=== PATIENT | female | born 1990 | race Hispanic/Latino ===

== ENCOUNTER 2016-07-25 23:43 | Inpatient (IN) | payer MEDICAID ==
[~2016-07-25] VITALS: Ht 152.4 cm; Wt 68.9 kg
[2016-07-26] MEDS ORDERED: Bupivacaine-MPF 0.25% 30 mL Inj ONE (00:16)
[2016-07-26] MEDS ORDERED: Lactated Ringer's 1,000 ML IV PRN (00:21)
[2016-07-26] MEDS ORDERED: fentaNYL-PF 50 mCg/mL 2 mL Inj IVPUSH PRN (00:25)
[2016-07-26] MEDS ORDERED: Oxytocin 10 Unit/mL Inj IM PRN ×2 (00:25→05:00)
[2016-07-26] MEDS ORDERED: Methylergonovine 0.2 mg/mL Inj IM PRN ×2 (00:25→05:00)
[2016-07-26] MEDS ORDERED: Oxytocin 30 Units/500 mL LR 30 UNITS in IV Premix 1 EACH IV PRN ×2 (00:25→05:00)
[2016-07-26] MEDS ORDERED: Sodium Chloride LOK Flush 10 mL Syringe IVFLUSH PRN (00:25)
[2016-07-26] MEDS ORDERED: Hemorrhage Kit, Post Partum XX ONE ×2 (00:25→05:00)
[2016-07-26] MEDS ORDERED: Carboprost 250 mCg/mL Inj IM PRN ×2 (00:25→05:00)
[2016-07-26] MEDS ORDERED: Ondansetron 2 mg/mL 2 mL Inj IVPUSH PRN (00:25)
--- NOTE | 2016-07-26 00:41 | PCM.HPOB ---
Subjective Referring Provider: Admitting Physician: Nakia Aparicio MD Primary Care Physician: Nakia Aparicio MD Attending Physician: Nakia Aparicio MD Chief Complaint Loss of fluid and contractions. History of Present History of Present Illness 26 yo at 38w5d , SHANNA= 08/04/2016 by LMP conf by 8wk US. Presented with history of Contractions started at around 20:00 followed by gush of clear fluid at 2100 (07/25/16). Good FM. complicated with: 1- Positive CT on 02/14/2016 with Rx on 02/18/16(ANAI 03/18/16). third trimester ANAI(-) 2- Rh negative(received Rhogam 05/12/16). 3-GERD. 4- possible IUGR by anatomy scan at 20 weeks EFW at 7th%ile, , nml growth on follow up at 26 weeks was at 60th %ile. 5. History of URTI and Gastritis during . Past Medical History Obstetrical History: G1: Delivery date:03/27/2012, , Anesthesia:None Berith weight: 7lb Length of : 40 weeks Complications: none Medical History: Dermatitis. Surgical History: Cholecystectomy 2013 Hx Tobacco Use: No Hx Alcohol Use: No Hx Substance Use: No Past Family History Family History noncontributory Review of Systems ROS 10 points ROS is negative except for items in HPI. Allergy Coded Allergies: No Known Allergies (Unverified , 07/26/16) Exam Vital Signs 122/82 HR 112 RR 14 T 36.5 Exam 145 minimal variability positive acceleration , no decelerations. [place] Q 3 min Constitutional: Well-developed HEENT: Atraumatic Lungs: Clear to Auscultation Heart: Regular Rate/Rhythm, Normal S1, Normal S2 Abdomen: Gravid Extremities: Pulses Palpable x4 Neurological/Psychiatric: Alert, Oriented X3, Cooperative Neuro: Reflexes 2+ Additional Information confirmed SROM by ROM + by RN. Cervix FT/30%/posterior. by RN at triage room. Exam 1 hour later 2/60%/-3 Labs/Diagnostics Maternal Blood Type: O (negative ) Antibody Screen: antibody screen negative Group B Strep Results: Negative (07/10/16) Additional Information RPR NR HepBsAg NR HI NR Rubella immune Chlamydia psitive ,and 02/14/16 ANAI GC/CT negative on 03/18/2016 and 06/13/2016 pap smear WNL 02/14/16 DM screen WNL (129) Quad screen negative OB Intrapartum Assessment/Plan Assessment 26 yo at 38w5d , SHANNA= 08/04/2016 by LMP conf by 8wk US. SROM at 2100 (07/25/16). Active labor. complicated with: 1- Positive CT on 02/14/2016 with Rx on 02/18/16. ANAI 03/18/16 (-). ANAI third trimester 06/13/16TOC(-) 2- Rh negative(received Rhogam 05/12/16). 3- GERD. 4- possible IUGR by anatomy scan at 20 weeks EFW at 7th%ile, , nml growth on follow up at 26 weeks was at 60th %ile. 5. History of dermatitis, URTI and Gastritis during . Pain Management: Admit with orders and labs May consider Pitocin augmentation if needed. Desires Epidural. Nakia Aparicio MD Jul 26, 2016 00:41
[2016-07-26 01:04] LABS: Mean Corpuscular Hemoglobin 28.9 pg (27.0-35.0); Mean Corpuscular Volume 88.6 fL (81-100)
[2016-07-26] MEDS ORDERED: Lactated Ringer's 1,000 ML IV SCH ×2 (01:46→05:00)
[2016-07-26] MEDS ORDERED: Lactated Ringer's 500 ML IV ONE (01:46)
--- NOTE | 2016-07-26 01:49 | PCM.HPANE ---
Patient Data Surgeon Admitting Provider:Nakia Aparicio MD Attending Provider:Nakia Aparicio MD Primary Care Physician:Nakia Aparicio MD Other Provider:[place] Anesthesia Reason for Visit Term Labor Ht/WT & BMI Body Mass Index Allergies Coded Allergies: No Known Allergies (Unverified , 07/26/16) Diabetes History Hx Diabetes?: No Medications Hypertension Medication: No Home Meds Incl Beta Scot: No History Hx of Heart Problems?: No Hx of Respiratory Problem?: No Hx Alcohol Use: NoHx Substance Use: No Stop/Bang Risk Assessment Category Category 1A: Patient has history of documented sleep apnea, and HAS NOT received any narcotic, sedative or anesthesia administration during this stay. Category 1B: Patient has history of documented sleep apnea, and HAS received any narcotic , sedative or anesthesia administration during this stay Category 2: Patient has SUSPECTED Obstructive Sleep Apnea, and HAS received any narcotic , sedative or anesthesia administration during this stay. Category 3: Patient has SUSPECTED Obstructive Sleep Apnea and HAS NOT received narcotic, sedative or anesthesia administration during this stay. Category 4: Outpatient in Procedural Areas with known sleep apnea or who screen positive for High Risk via the STOP/BANG questionnaire. Exam Exam General Appearance: Alert, Oriented X3, Cooperative, Severe Distress (with contractions) HEENT/AIRWAY: MP 2 Lungs: Normal Air Movement Heart: Exam Unremarkable Meds/Labs/Diagnostics Labs Test 07/26/16 00:45 White Blood Count 14.5th/mm3 (3.8-10.1) Red Blood Count 4.05mil/mm3 (3.90-5.20) Hemoglobin 11.7g/dL (12.0-15.6) Hematocrit 35.9% (35.0-46.0) Mean Corpuscular Volume 88.6fL (81-100) Mean Corpuscular Hemoglobin 28.9pg (27.0-35.0) Mean Corpuscular Hemoglobin Concent 32.6% (32.0-37.0) Red Cell Distribution Width 12.2% (12.3-15.4) Platelet Count 284bil/L (150-400) Plan Impression Patient chart reviewed, patient interviewed and anesthestic plan with risks, benefits, and alternatives discussed, and informed consent obtained. ASA Physical Status: ASA1 Normal Healthy Anesthetic Plan: Epidural Bene/Risks/Altern/Consents: Yes HP Complete Prior to Induction: Yes Quinn Schmitz MD Jul 26, 2016 01:49
[2016-07-26] MEDS ORDERED: fentaNYL 2 mCg/mL-Bupiv 0.125% 100 ML EPIDURAL SCH (01:50)
[2016-07-26] MEDS ORDERED: Atropine 1 mg/10 mL (Code) Syringe IVPUSH PRN (01:50)
[2016-07-26] MEDS ORDERED: EPHEDrine Sulfate 50 mg/mL Inj IVPUSH PRN (01:50)
[2016-07-26] MEDS: Dextrose 5% Lactated Ringer's 1,000 ML IV SCH ×2 (03:35→09:10)
[2016-07-26 04:05] LABS: Mean Corpuscular Hemoglobin 29.2 pg (27.0-35.0); Mean Corpuscular Volume 89.4 fL (81-100)
[2016-07-26] MEDS ORDERED: Witch Hazel-Glycerin Pads TOPICAL PRN (05:00)
[2016-07-26] MEDS ORDERED: LANOlin HPA 7 Gm Ointment TOPICAL PRN (05:00)
[2016-07-26] MEDS ORDERED: Benzocaine (Dermoplast) 20% 60 Gm Spray TOPICAL PRN (05:00)
--- NOTE | 2016-07-26 06:58 | PCM.ANEP2 ---
Post Anesthesia Evaluation ASA/CMS Post Anesthesia VS in Patient's Normal Range?: Yes Resp Stable; Airway Patent?: Yes CV Function & Hydration Stable: Yes Mental Status Recovered?: Yes Pain control Satisfactory?: Yes N/V Control Satisfactory?: Yes Quinn Schmitz MD Jul 26, 2016 06:58
--- NOTE | 2016-07-26 06:58 | PCM.ANEP1 ---
Post Anesthesia Phase 1 PACU Phase 1 Assessment Vital Signs see nursing record Anesthetic Administered: Epidural Level of Alertness: Awake, talking JUNG's with Equal Strength: Yes Pain: No Nausea or Vomiting: No Oxygen Delivery: Room Air Lungs: Normal Air Movement Dermatome Level: Full Sensation Quinn Schmitz MD Jul 26, 2016 06:58
[2016-07-26] MEDS: Ascorbic Acid 500 mg Tablet PO SCH ×2 (08:00→16:54)
[2016-07-26] MEDS: Lactated Ringer's 1,000 ML IV SCH (08:21)
[2016-07-26] MEDS: oxyCODONE-Acetamin 5-325 mg Tablet PO PRN (16:54)
[2016-07-27] MEDS: Lactated Ringer's 1,000 ML IV SCH (08:21)
[2016-07-27] MEDS: Ascorbic Acid 500 mg Tablet PO SCH ×2 (08:46→17:18)
[2016-07-27] MEDS: Dextrose 5% Lactated Ringer's 1,000 ML IV SCH (11:25)
[2016-07-27] MEDS: oxyCODONE-Acetamin 5-325 mg Tablet PO PRN ×2 (11:52→17:19)
--- NOTE | 2016-07-27 12:15 | PCM.DIOB ---
Obstetrical Disch Instruction Date of Service: Jul 27, 2016 Dates of Hospitalization Date of Hospital Admission Jul 26, 2016 at 00:15 Providers Admitting Physician: Nakia Aparicio MD Primary Care Physician: Nakia Aparicio MD Attending Physician: Nakia Aparicio MD Additional Instructions Discharge Instructions Status post normal vaginal delivery Chorioamnionitis , resolved. Disposition: home. Discharge Condition: stable. Diet Discharge Diet: No restrictions Activity Discharge Activity-General: Pelvic Rest for 6 weeks, Be up and about, Balance rest and activity, No lifting >10 pounds for 4-6 weeks Dressing and Incisional Care Hygiene: May shower, Perineal care, Sitz bath Follow Up Plan Follow-up Provider (F9): Jignesh Wong MD Follow-up appointment: * Weeks (2) or sooner if needed for post visit. * Weeks (3) for nxplanon insertion. Call your provider for: Fever or Chills, Shortness of breath, Heavy vaginal bleeding, Heavy bleeding, Epigastric pain, Excessive constipation, Vaginal discomfort, Red painful breasts, Other (headache, change in vision, leg swelling in one leg more than the other, change in color or painful legs. ) Nakia Aparicio MD Jul 27, 2016 12:15
[2016-07-27] MEDS ORDERED: FERR-74 PO (12:19)
[2016-07-27] MEDS ORDERED: DOCU-41 PO (12:19)
[2016-07-27] MEDS ORDERED: Ascorbic Acid PO (12:19)
[2016-07-27] MEDS ORDERED: Lanolin TOPICAL (12:19)
[2016-07-27] MEDS ORDERED: IBUP-1827 PO (12:19)
[2016-07-27] MEDS ORDERED: OXYC1TAB24 PO (12:19)
--- NOTE | 2016-07-27 12:28 | PCM.DC.OB ---
Obstetrical Discharge Summary Date of Service Jul 27, 2016 Date of hospital admission Jul 26, 2016 at 00:15 Date of Discharge: Jul 27, 2016 Providers Admitting Physician: Juanpablo Vincent MD Primary Care Physician: Juanpablo Vincent MD Attending Physician: Juanpablo Vincent MD Brief History and Physical: Hospital Course: Status post normal vaginal delivery Chorioamnionitis in labor, resolved. Problems: Hospital Course: 26 yo G2 [id number] was admittedat 38w5d for active labor and SROM (time of rupture 07/25/16 at 20:00) Status post normal vaginal delivery on 07/26/16. In the second stage of labor and maternal tachycardia noted and maternal fever of 38.5 noted shortly post deliver. No antibiotics were given. Patient remained afebrile for more than 24 hours before discharge. COMPLICATED WITH: 1- Positive CT on 02/14/2016 with Rx on 02/18/16. ANAI 03/18/16 (-). ANAI third trimester 06/13/16TOC(-) 2- Rh negative (received Rhogam 05/12/16 and post delivery 07/26/16, Rh Rossette test negative) 3- GERD. 4- possible IUGR by anatomy scan at 20 weeks EFW at 7th%ile, , nml growth on follow up at 26 weeks was at 60th %ile. 5. History of dermatitis, URTI and Gastritis during . OUTCOME: in cephalic presentation, weight pounds ounces, equivalent to g. Apgars at one minute and at five minutes. DISCHARGE DAY EXAM: day number 1, patient is ambulating, tolerating regular diet without nausea or vomiting and voiding without difficulty. Pain was well controlled. No chest pain, no headache or change in vision. VS: reviewed and stable. 101/62, 80, 16, 37.0 (Tmax 38.5 at 4:13 07/26/16 just before delivery, last elevated temperature 37.8 at 7:45 07/26/16) General: Alert, Oriented X3 Lungs: Clear to Auscultation, Clear to Percussion Heart: Regular Rate/Rhythm, Normal S1, Normal S2 Abdomen: Fundus firm Extremities: No tenderness/swelling, Edema 1+ Lochia: normal. LABS: Laboratory Tests 72 Hours Test 07/26/16 00:45 07/26/16 03:30 07/27/16 11:45 White Blood Count 14.5th/mm3 (3.8-10.1) 15.0th/mm3 (3.8-10.1) 10.9th/mm3 (3.8-10.1) Red Blood Count 4.05mil/mm3 (3.90-5.20) 3.77mil/mm3 (3.90-5.20) 3.82mil/mm3 (3.90-5.20) Hemoglobin 11.7g/dL (12.0-15.6) 11.0g/dL (12.0-15.6) 11.4g/dL (12.0-15.6) Hematocrit 35.9% (35.0-46.0) 33.7% (35.0-46.0) 34.5% (35.0-46.0) Mean Corpuscular Volume 88.6fL (81-100) 89.4fL (81-100) 90.3fL (81-100) Mean Corpuscular Hemoglobin 28.9pg (27.0-35.0) 29.2pg (27.0-35.0) 29.8pg (27.0-35.0) Mean Corpuscular Hemoglobin Concent 32.6% (32.0-37.0) 32.6% (32.0-37.0) 33.0% (32.0-37.0) Red Cell Distribution Width 12.2% (12.3-15.4) 12.2% (12.3-15.4) 12.6% (12.3-15.4) Platelet Count 284bil/L (150-400) 268bil/L (150-400) 280bil/L (150-400) Thyroid Stimulating Hormone (TSH) 1.300uIU/mL (0.450-4.500) Free Thyroxine 0.90ng/dL (0.82-1.77) Neutrophils (%) (Auto) 72.1% (40-74) Lymphocytes (%) (Auto) 15.1% (14-46) Monocytes (%) (Auto) 10.9% (4-12) Eosinophils (%) (Auto) 1.1% (0-5) Basophils (%) (Auto) 0.2% (0-3) labs: Maternal Blood Type: O (negative ) Antibody Screen: antibody screen negative Group B Strep Results: Negative (07/10/16) RPR NR HepBsAg NR HI NR Rubella immune Chlamydia psitive ,and 02/14/16 ANAI GC/CT negative on 03/18/2016 and 06/13/2016 pap smear WNL 02/14/16 DM screen WNL (129) Quad screen negative Disposition: home. Discharge Condition: stable. Diet Discharge Diet: No restrictions Activity Discharge Activity-General: Pelvic Rest for 6 weeks, Be up and about, Balance rest and activity, No lifting >10 pounds for 4-6 weeks Dressing and Incisional Care Hygiene: May shower, Perineal care, Sitz bath Follow Up Plan Follow-up Provider (F9): Jignesh Wong MD Follow-up appointment: * Weeks (2) or sooner if needed for post visit. * Weeks (3) for nxplanon insertion. Call your provider for: Fever or Chills, Shortness of breath, Heavy vaginal bleeding, Heavy bleeding, Epigastric pain, Excessive constipation, Vaginal discomfort, Red painful breasts, Other (headache, change in vision, leg swelling in one leg more than the other, change in color or painful legs. ) ([Lanolin]) 2 APPLIC/GM OINT 1 APPLIC TOPICAL PRN PRN PRN apply to nipples Prescribed by: JUANPABLO VINCENT MD Docusate Sodium (Colace) 100 Mg Capsule 100 MG PO BID PRN PRN For Constipation Prescribed by: JUANPABLO VINCENT MD Ibuprofen (Ibuprofen) 600 Mg Tablet 600 MG PO QID PRN PRN For Pain Prescribed by: JUANPABLO VINCENT MD oxyCODONE-Acetaminophen 5-325 mg (oxyCODONE-Acetaminophen 5-325 mg) 1 Each Tablet 1-2 TAB PO Q4H PRN PRN For Pain Prescribed by: MD Markus GOODE Omaima A MD Jul 27, 2016 12:28 Prescribed by: JUANPABLO VINCENT MD oxyCODONE-Acetaminophen 5-325 mg (oxyCODONE-Acetaminophen 5-325 mg) 1 Each Tablet 1-2 TAB PO Q4H PRN PRN For Pain Prescribed by: MD Markus GOODE Omaima A MD Jul 27, 2016 12:28
[2016-07-27 12:40] LABS: BASOPHILS % (AUTO) 0.2 % (0-3); EOSINOPHILS % (AUTO) 1.1 % (0-5); MONOCYTES % (AUTO) 10.9 % (4-12); Mean Corpuscular Hemoglobin 29.8 pg (27.0-35.0); Mean Corpuscular Volume 90.3 fL (81-100); NEUTROPHILS % (AUTO) 72.1 % (40-74); Platelet Count 280 bil/L (150-400)
--- NOTE | 2016-07-27 13:25 | OP ---
[address] [address] OPERATIVE REPORT PATIENT: TEREZA DAMON : 1990 MR#: [id number] ADMIT: 07/26/2016 JOB ID: [id number] DATE OF SURGERY: 07/26/2016 SURGEON: Nakia Aparicio MD. PREOPERATIVE DIAGNOSIS(ES): Intrauterine at 38 weeks and five days. Spontaneous rupture of membranes. Time of rupture July 25, 2016. Spontaneous labor. Rh negative. History of positive Chlamydia, February 14, 2016, treated with two negative tests of cure on March 18, 2016, and on June 13, 2016. POSTOPERATIVE DIAGNOSIS(ES): Intrauterine at 38 weeks and five days, delivered. Spontaneous rupture of membranes. Time of rupture July 25, 2016. Spontaneous labor. Rh negative. History of positive Chlamydia, February 14, 2016, treated with two negative tests of cure on March 18, 2016, and on June 13, 2016. Status post spontaneous vaginal delivery. Chorioamnionitis. ESTIMATED BLOOD LOSS: 250 mL. ANESTHESIA: Epidural. FINDINGS: Female infant delivered in cephalic presentation. Weight 3141 g ,equivalent to 6 pounds 15 ounces. Apgars 9 at one minute and 9 at five minutes. Meconium-stained amniotic fluid. PROCEDURE: This is a 26-year-old, 2, para 1-0-0-1. Presented at 38 weeks and five days with spontaneous rupture of membranes at July 25, 2016. The gush of fluid preceded by contraction that started around 1999. Patient reported good of movement. At presentation, cervix was fingertip and 30% effaced and posterior. Patient underwent spontaneous cervical change. Found to be 5 cm dilated, 90% effaced, -2 at 3 a.m., three hours after presentation and found to be completely dilated at 4 a.m. Shortly before the delivery, tachycardia was noted with heart rate running between 160-165. Maternal tachycardia noted with heart rate of 117-130. No fever and no uterine tenderness until shortly before the delivery at 4:13. A maternal temperature of 38.5 was noted. White blood cell count on admission was 14.5. Repeat 1 hour before the delivery, white cell count was 15. No foul odor to the amniotic fluid. The patient pushed effectively and delivered on July 26, 2016 at 4:21 a.m. Female infant in occiput anterior position with no nuchal cord. Shoulders delivered without difficulty. Infant was placed in the maternal abdomen. Delayed cord clamp was performed after [address] Beck, the kidney puller, was present in the room for evaluation secondary to decreased heart tones variability and suspicion of chorioamnionitis shortly before the delivery. No antibiotics were started yet. Cord gases were collected. Cord blood was collected for typing. The placenta was delivered intact with a three-vessel cord. Perineum was examined with no laceration. Pitocin was started after delivery of the placenta. Bleeding was minimal at the end of the procedure. Total estimated blood loss 250 mL. All instrument, needles and sponge counts were correct x2. Cord Gases: PH 7.207, pCO2 43, pO2 49.4, cHCO3 16.5, cBase -10.7 Nakia Holcomb, was present and scrubbed for the entire procedure. GIL
[2016-07-27 16:23] VITALS: BP 112/72; PULSE 76; RESP 20
== END 2016-07-27 17:45 | disposition home or self-care (01) | DRG 775 ==
LOC: FBCO 23:43 → FBC 07-26 00:15
PROVIDERS: ADMIT Obstetrics & Gynecology; ATTEND Obstetrics & Gynecology
PROC: 10E0XZZ Delivery of Products of Conception, External Approach (ICD-10-PCS; principal; 2016-07-26)
DX: O41.1230 Chorioamnionitis, third trimester, not applicable or unspecified (principal); O76 Abnormality in fetal heart rate and rhythm complicating labor and delivery; Z3A.38 38 weeks gestation of pregnancy; Z37.0 Single live birth